=== PATIENT | male | born 1965 | race African-American/Black ===

== ENCOUNTER 2024-05-06 23:52 | Emergency (ER) | payer BC, SELFPAY ==
--- NOTE | 2024-05-06 23:56 | ED.GENMED ---
History of Present Illness
General
Chief Complaint: Alcohol Problem
Time Seen by Provider: 05/06/24 23:56
History of Present Illness
History of Present Illness:
TIME OF INITIAL ENCOUNTER: 11:55 PM
HPI: I spoke to superintendent police at bedside for additional history. The patient was found in a parked car in a [facility] parking lot behind the wheel in a minimal responsive state. There were a lot of bottles of alcohol inside of the car as
well. History is extremely limited at this time.
EXAM:
GENERAL: The patient appears to be resting comfortably with his eyes closed. He appears generally weak
HEENT: Moist oral mucosa, pupils are just slightly small but not pinpoint
CARDIOVASCULAR: No murmurs, normal heart rate, regular rhythm, No chest wall tenderness
PULMONARY: No respiratory distress, breath sounds are clear and equal, respiratory rate is normal
ABDOMEN: Soft with no peritoneal signs, no tenderness
NEUROLOGIC: The patient does respond to verbal stimuli and opens his eyes to command.
PSYCHIATRIC: The patient appears intoxicated
EXTREMITIES: Nontender, no edema, moves all extremities equally
SKIN: No rash, no lesions
NUMBER AND COMPLEXITY OF PROBLEMS ADDRESSED AT THE ENCOUNTER
� Chronic conditions affecting care: Denies
� Acute Exacerbation and/or Progression of Chronic Illness: This is an acute problem
� Differential Diagnosis includes: Alcohol intoxication, substance abuse
AMOUNT AND/OR COMPLEXITY OF DATA TO BE REVIEWED AND ANALYZED
� I performed an independent evaluation of and my interpretation is:
EKG:
CT:
X-rays:
Laboratory Studies: White count 5.0, hemoglobin 10.7, alcohol 281, UDS neg, Na 147
Other:
� Review of other/old records: No old records available for review in [facility]
� Clinical information was obtained by an independent historian: I spoke to EMS as well as police
� Prescriptions/Medications Considered but not given: See below
� Further testing considered but not performed:
RISK OF COMPLICATIONS AND/OR MORBIDITY OR MORTALITY OF PATIENT MANAGEMENT
� Social determinants of health affecting care: [employer]'s license indicates that he resides in [place]
� Discussion with other providers:
� Escalation of care including admission/observation vs risk of discharge considered: Respiratory rate is normal and pupils are pinpoint therefore no Narcan was given. I spoke police at bedside. Labs pending.
ANY OTHER UPDATES:
On reassessment at 6:15 AM: The patient is now awake and alert. He denies any significant past medical history. He has appropriate mental status. He states that he has [employer] on his phone. We will keep him here until 8:00 but already clinically
does not appear to be intoxicated as of 6:30 AM.
Phy Exam
Physical Exam
Physical Exam:
See HPI
Scores
Withdrawal Assessment of Alcohol
Withdrawal Assessment Completed?: Not applicable
Course
Orders/Labs/Results
Orders:
Orders
05/06/24 23:57
Alcohol Urgent
Complete Blood Count/With Diff Urgent
Comprehensive Metabolic Panel Urgent
Urine Drug Abuse Screen Urgent
Date Specimen was Collected: 05/07/24
Time Specimen was Collected: 01:39
05/07/24 00:05
EKG [Electrocardiogram (*1)] Urgent
Reason for Study: Other
Other Reason for Exam: medical clearance
EKG- Treatment ONCE
Abnormal Lab Results
05/07/24
00:32
RBC 3.34 L 10^6/uL
(4.70-6.10)
Hgb 10.7 L g/dL
(13.0-18.0)
Hct 32.4 L %
(39.0-52.0)
MCV 97.0 H fL
(80.0-94.0)
MCH 32.0 H pg
(27.0-31.0)
MPV 10.5 H fL
(7.4-10.4)
Absolute Neuts (auto) 0.8 L* 10^3/uL
(1.4-6.5)
Absolute Lymphs (auto) 3.5 H 10^3/uL
(1.2-3.4)
Neutrophils % 15.3 L %
(42.2-75.2)
Lymphocytes % 68.7 H %
(20.5-51.1)
Monocytes % 10.0 H %
(1.7-9.3)
Sodium 147 H mmol/L
(135-145)
Chloride 110 H mmol/L
(98-107)
Carbon Dioxide 20 L mmol/L
(22-30)
BUN 21 H mg/dl
(9-20)
Glucose 101 H mg/dl
(70-99)
05/07/24 00:32
05/07/24 00:32
Vital Signs
Initial and Last Documented VS:
Initial Vital Signs
Pulse Ox
99
05/07/24 00:05
Last Documented Vital Signs
Temp Pulse Resp BP Pulse Ox
97.6 F 64 15 106/60 99
05/07/24 00:06 05/07/24 02:00 05/07/24 02:00 05/07/24 02:00 05/07/24 02:00
*Critical Care Note
Total Time (30-74mins, 75-104mins- exclusive of procedures): Not Applicable
ED Attending Note
-
Portions of this chart may have been created with voice recognition software.� Occasional wrong word or��sound alike� substitutions may have occurred due to the inherent limitations of voice recognition software.
Discharge Plan
Departure
Patient Disposition: Home (Routine Discharge)
Date of Disposition: 05/07/24
Time of Disposition: 06:32
Patient with high blood pressure during this ER visit?: Yes
Discharge Problem:
Alcohol intoxication
Referrals:
NONE,* [Family Provider] -
Activity Restrictions/Additional Instructions:
Your alcohol level earlier this morning at just after midnight was 281. You must not drive until at least 9:30 AM today. Your alcohol level will not be down to 0 until about 1:30 PM today.
Interventions
Interventions:
*Risk Screen - Suicide Last Done: 05/07/24 00:06
*General Assessment Last Done: 05/07/24 00:06
*Neglect/Abuse Screening Last Done: 05/07/24 00:06
ED- Fall Risk Assessment Last Done: 05/07/24 00:05
*ED COVID-19 Vaccine History Last Done: 05/07/24 00:05
ED- Neurological Assessment Last Done: 05/07/24 00:05
ED-Psychological Assessment Last Done: 05/07/24 00:05
Discharge Date and Time
Print Language: MONGOLIAN
[2024-05-07] VITALS (16 sets, daily range): BP systolic 84–132; BP diastolic 47–81; BMI 32.8
[2024-05-07 01:23] LABS: Hematocrit 32.4 % (39.0-52.0); Hemoglobin 10.7 g/dL (13.0-18.0); Mean Platelet Volume 10.5 fL (7.4-10.4); Platelet Count 177 10^3/uL (130-400); Red Blood Cell Count 3.34 10^6/uL (4.70-6.10); Red Cell Dist. Width 14.3 % (11.5-14.5)
[2024-05-07 01:27] LABS: ALT (SGPT) 27 U/L (0-50); AST (SGOT) 33 U/L (17-59); Albumin 4.1 g/dl (3.5-5.0); Alcohol 281 mg/dl; Alkaline Phosphatase 40 U/L (38-126); Blood Urea Nitrogen 21 mg/dl (9-20); Calcium 9.6 mg/dl (8.4-10.2); Carbon Dioxide 20 mmol/L (22-30); Chloride 110 mmol/L (98-107); Estimated Creatinine Clearance 85 ml/min; Glucose 101 mg/dl (70-99); Potassium 4.3 mmol/L (3.5-5.1); Sodium 147 mmol/L (135-145); Total Bilirubin 0.2 mg/dl (0.2-1.3); Total Protein 6.8 g/dl (6.3-8.2); eGFR > 60.00
[2024-05-07 02:25] LABS: Amphetamines Negative (Negative); Barbiturates Negative (Negative); Benzodiazepines Negative (Negative); Buprenorphine Negative (Negative); Cocaine Negative (Negative); Marijuana Negative (Negative); Methadone Negative (Negative); Methamphetamines Negative (Negative); Opiates Negative (Negative); Phencyclidine Negative (Negative); Tricyclic Antidepressants Negative (Negative)
[2024-05-07 02:47] LABS: % Basophils 1.2 % (0-2); % Eosinophils 4.4 % (0-6); % Immature Granulocytes 0.4 % (0-0.5); % Lymphocytes 68.7 % (20.5-51.1); % Neutrophils 15.3 % (42.2-75.2); Absolute Basophils 0.1 10^3/uL (0-0.2); Absolute Eosinophils 0.2 10^3/uL (0-0.7); Absolute Lymphocytes 3.5 10^3/uL (1.2-3.4); Absolute Monocytes 0.5 10^3/uL (0.1-0.6); Absolute Neutrophils 0.8 10^3/uL (1.4-6.5); Nucleated Red Blood Cells % 0 % (-)
--- NOTE | 2024-05-07 07:51 | EDRN ---
the pt woke up and pressed the call davalos, this RN entered the pts room and the pt stated that he wanted to get an uber to his car and drive home, however the pts alcohol level was 281 at 0032, this RN spoke with Dr. Corey and per the provider
the pt cannot drive home, this RN notified the pt that this RN could get him an uber directly home and notified him that he would have to coal picker his car later
--- NOTE | 2024-05-07 08:13 | EDRN ---
this RN entered the pts room and notified the pt that this RN spoke with the provider and notified the pt that the pt needs to get an uber home and notified the pt that he cannot drive, the pt stated to this RN, 'That can't happen, i live in [place] about [place] away i need to get home and i need to take my car home', this RN notified the provider
[2024-05-07] MEDS: NSS 1000 IV (08:29)
--- NOTE | 2024-05-07 08:30 | EDRN ---
per the provider Dr. Harrison, another alcohol level was drawn and sent and 1000cc IVF Bolus was hung and is running, the pt is pleasant, and cooperative with this RN, per the provider, when the alcohol level comes back the provider will assess to
see if the pt is okay to drive, the pt is AAO, able to answer questions appropriately and able to move all extremities, the pt was able to ambulate to the bathroom with no difficulty and no assistance, will continue to monitor the pt closely
[2024-05-07 08:47] LABS: Alcohol 161 mg/dl
--- NOTE | 2024-05-07 08:55 | EDRN ---
the pts Alcohol level came back and was 161, this RN notified Dr. Harrison, per the provider the pt is okay to uber to his car and drive home, on discharge paper work that Dr. Mesa provided earlier, it says that the pt is not to drive
until at last 09:30am today, this RN will discharge the pt at that time, the pt is comfortable, no complaints offered, VS WNL, will continue to monitor the pt closely
--- NOTE | 2024-05-07 09:50 | EDRN ---
this RN and Dr. Harrison at the pt bedside and provided the pt with discharge instructions, the pt verbally stated that he understood
--- NOTE | 2024-05-07 09:53 | EDRN ---
the pt is getting dressed and is going to order uber to [facility] in [place] where he says his car is, the provider was notified, the pt is calm, pleasant, and cooperative, the pt is able to ambulate independently with no issues
== END 2024-05-07 09:55 | disposition home or self-care (01) ==
LOC: EMR 23:52
PROVIDERS: Emergency Medicine; EMERGENCY PHYSICIAN Emergency Medicine
DX: F10.129 Alcohol abuse with intoxication, unspecified (principal); Y90.8 Blood alcohol level of 240 mg/100 ml or more
CPT/HCPCS: 99284; 96360; 80053; 80306; 82077; 85025; 93005